=== PATIENT | female | born 1945 | race Caucasian/White ===

== ENCOUNTER 2016-06-13 13:09 | Emergency (ER) | payer MEDICARE ==
[2016-06-13] MEDS ORDERED: IOPAMIDOL 370 (76%) 100 ML VIAL IV ONE (13:10)
[2016-06-13] MEDS ORDERED: IPRATROPIUM BROMIDE 0.5 MG/2.5 ML DOSE ONE (14:34)
[2016-06-13] MEDS ORDERED: SODIUM CL FOR INHALATION 3 ML DOSE ONE (14:35)
[2016-06-13] MEDS ORDERED: ALBUTEROL SULFATE 5MG/ML INHALANT 20 ML BOT ONE (14:35)
[2016-06-13 14:36] LABS: I-STAT CREATININE 1.3 mg/dL (0.6-1.3)
[2016-06-13 14:51] LABS: ABSOLUTE NEUTROPHIL COUNT 10.2 K/mm3 (1.8-7.7); BASO % 0.1 % (0.2-1.0); EOS # 0.1 (0.0-0.5); EOS % 0.8 % (0.9-2.9); HEMATOCRIT 30.7 % (37.0-47.0); IMM NEUT # 0.1 K/mm3 (0-0.2); IMM NEUT% 0.4 % (0-1); LYMPH # 0.9 (1.0-4.8); LYMPH % 7.7 % (15-45); MEAN CELL VOLUME 105.9 fl (81.0-99.0); MEAN CORPUSCULAR HEMOGLOBIN 34.5 pg (27.0-31.0); MEAN CORPUSCULAR HGB CONC 32.6 g/dl (33.0-37.0); MEAN PLATELET VOLUME 10.6 fl (7.4-10.4); MONO # 0.6 (0.0-0.8); PLATELET COUNT 138 K/mm3 (130-400); RED CELL DISTRIBUTION WIDTH 13.2 % (11.5-14.5)
--- NOTE | 2016-06-13 14:55 | RAD ---
CHEST-AP BEDSIDE COMPARISON: Yes 1 view, 04/30/2015 HISTORY: Dyspnea FINDINGS: Views: Frontal chest. Lungs: Heart and vessels: Normal Trachea and bronchi: Normal Mediastinum and ney: Normal Costophrenic sulci: Normal Chest wall and bones: No acute finding. There is a Port-A-Cath on the right, unchanged position. Upper abdomen: Normal. IMPRESSION: Negative one view chest.
[2016-06-13 15:36] LABS: INR 0.98; PROTHROMBIN TIME 10.3 SECONDS (9.3-11.4)
--- NOTE | 2016-06-13 16:14 | CT ---
CTA CHEST FOR PE COMPARISON: CTA chest, 12/17/2011 HISTORY: Dyspnea. Technique: Intravenous injection 80 mL [id number]. Using a [employer] Aquilion [address] scanner, following a CT angiogram protocol, images obtained through the thorax. Under concurrent supervision and interpretation, requiring a separate 3-D workstation, the technologist created 3-D CT angiograms. An automated dose reduction technique was used to minimize patient radiation dose. Dose information: CTDIvol (mGy): 7.70, 18.20, 7.90 DLP(mGycm): 249.40 FINDINGS: Pulmonary arteries and veins: Excellent contrast opacification. No pulmonary embolism. Aorta: Atherosclerosis. No aneurysm. No dissection. Heart and coronary arteries: No cardiomegaly. Coronary artery atherosclerosis. Lungs: Severe emphysema. In the posterior basal segment of the right lower lobe, 3.3 x 1.7 cm consolidation. Trachea and bronchi: Normal. Mediastinum and ney: Normal. Pleura and pericardium: Normal. Chest wall: Within normal limits. Spine: Degenerative changes. No acute finding. Upper abdomen: Cholecystectomy. 3-D CT angiogram: Normal. IMPRESSION: 1. No pulmonary embolus. 2. Infiltrate/consolidation in the posterior base of the right lower lobe, evidence of pneumonia. 3. Severe emphysema. 4. Cholecystectomy The report was sent to the emergency department electronic medical record system, 06/13/2016 at 16:16
[2016-06-13] MEDS ORDERED: PREDNISONE 20 MG TABLET ONE (16:22)
[2016-06-13] MEDS ORDERED: DOXYCYCLINE HYCLATE 100 MG TABLET ONE (16:23)
[2016-06-14 17:35] LABS: ALB/GLOB RATIO 1.5 (>1.0); ALBUMIN 3.8 gm/dL (3.5-5.7); CALCIUM 9.3 mg/dL (8.6-10.3); MAGNESIUM 2.1 mg/dL (1.9-2.7)
== END 2016-06-13 16:48 | disposition home or self-care (01) ==
LOC: SUPCPDRO 13:09 → ED 13:09
DX: J18.9 Pneumonia, unspecified organism (principal); J44.9 Chronic obstructive pulmonary disease, unspecified; K21.9 Gastro-esophageal reflux disease without esophagitis; E78.5 Hyperlipidemia, unspecified; I10 Essential (primary) hypertension; Z87.891 Personal history of nicotine dependence; Z79.899 Other long term (current) drug therapy; Z88.2 Allergy status to sulfonamides; Z88.8 Allergy status to other drugs, medicaments and biological substances; Z91.048 Other nonmedicinal substance allergy status
CPT/HCPCS: 83880; 85025; 80053; 83735; 85610; 84484; 71010; 71275; 94640; 99284 ×2; 93005; J7645; J7512; A9270 ×2; Q9967

== ENCOUNTER 2016-06-24 22:40 | Emergency (ER) | payer MEDICARE ==
[2016-06-24 23:22] LABS: ABSOLUTE NEUTROPHIL COUNT 7.6 K/mm3 (1.8-7.7); BASO % 0.1 % (0.2-1.0); HEMATOCRIT 31.3 % (37.0-47.0); IMM NEUT% 0.5 % (0-1); LYMPH # 0.7 (1.0-4.8); LYMPH % 7.9 % (15-45); MEAN CELL VOLUME 108.7 fl (81.0-99.0); MEAN CORPUSCULAR HEMOGLOBIN 34.7 pg (27.0-31.0); MEAN CORPUSCULAR HGB CONC 31.9 g/dl (33.0-37.0); MONO # 0.5 (0.0-0.8); MONO % 5.1 % (4-12); NEUT % 86.4 % (43-75); PLATELET COUNT 112 K/mm3 (130-400); RED CELL DISTRIBUTION WIDTH 13.7 % (11.5-14.5)
[2016-06-24 23:36] LABS: ALB/GLOB RATIO 1.5 (>1.0); ALBUMIN 3.6 gm/dL (3.5-5.7); MAGNESIUM 1.9 mg/dL (1.9-2.7)
[2016-06-25] MEDS ORDERED: ALBUTEROL/IPRATROPIUM 2.5/0.5 MG 3 ML/EACH DOSE ONE (00:02)
[2016-06-25] MEDS ORDERED: PREDNISONE 20 MG TABLET ONE (01:35)
--- NOTE | 2016-06-25 08:15 | RAD ---
CHEST - 2 VIEWS COMPARISON: Portable chest x-ray, 06/13/2016 HISTORY: 70-year-old female with shortness of breath, cough, sputum, shoulder pain, and sore throat. Past surgical history includes partial left lower lobectomy for lung cancer. FINDINGS: Views: Frontal and lateral chest Lungs: Clear. No infiltrate. No nodule. Heart and vessels: Normal heart size. Atherosclerotic calcification of the aorta. Trachea and bronchi: Normal Mediastinum and ney: Normal Costophrenic sulci: Normal Chest wall and bones: No change. Port-A-Cath on the right. Degenerative changes in the spine.. Upper abdomen: Surgical clips in the right upper quadrant. IMPRESSION: 1. No acute finding. No pulmonary infiltrate. 2. Incidental findings include Port-A-Cath, atherosclerosis of the aorta, cholecystectomy clips, and spondylosis of the spine.
== END 2016-06-25 02:04 | disposition home or self-care (01) ==
LOC: ED 22:40
DX: J44.1 Chronic obstructive pulmonary disease with (acute) exacerbation (principal); K21.9 Gastro-esophageal reflux disease without esophagitis; I10 Essential (primary) hypertension; F17.210 Nicotine dependence, cigarettes, uncomplicated
CPT/HCPCS: 85025; 80053; 83735; 84484; 71020; 94640; 99284 ×2; J7512